=== PATIENT | male | born 1975 | race Caucasian/White ===

== ENCOUNTER → 2022-03-11 | Outpatient (CLI) | payer BC ==
--- NOTE | 2022-03-11 08:40 | CT ---
EXAMINATION TYPE: CT iac wo con DATE OF EXAM: 03/11/2022 COMPARISON: None HISTORY: Right side hearing loss x3MO, unknown cause. CT DLP: 142.7mGycm Automated exposure control for dose reduction was used. FINDINGS: The external auditory canals are patent bilaterally. The left-sided mastoid air cells are w ell-aerated. Small amount of fluid within the right-sided mastoid air cells compatible with chronic m astoiditis. The middle ear ossicles are symmetric and unremarkable. There is no evidence of suspicio us surrounding soft tissue density to suggest cholesteatoma. The scutum is preserved bilaterally. T he cochlea and the semicircular canals are symmetric and unremarkable. Vestibular aqueduct and inter nal carotid canal appear unremarkable. Temporomandibular joints are maintained bilaterally. There i s evidence of moderate pansinusitis. IMPRESSION: 1. Mild right-sided chronic mastoiditis. 2. Moderate pansinusitis.
== END | disposition home or self-care (01) ==
LOC: RADCTMAIN 06:42
PROVIDERS: ATTEND Otolaryngology
DX: H70.11 Chronic mastoiditis, right ear (principal); J32.4 Chronic pansinusitis
CPT/HCPCS: 70480